=== PATIENT | male | born 1950 | race Caucasian/White ===

== ENCOUNTER 2019-02-24 06:36 | Inpatient (IN) | payer MEDICARE, OTHER ==
[~2019-02-24] VITALS: Ht 182.9 cm; Wt 113.4 kg
[2019-02-24] VITALS (20 sets, daily range): BP systolic 92–134; BP diastolic 49–96
[2019-02-24 07:16] LABS: ABSOLUTE BASOPHILS 0.1 thou/uL (0.0-0.2); ABSOLUTE EOSINOPHILS 0.1 thou/uL (0.0-0.7); ABSOLUTE LYMPHOCYTES 1.8 thou/uL (0.8-5.3); ABSOLUTE MONOCYTES 0.5 thou/uL (0.0-1.2); ABSOLUTE NEUTROPHILS 5.3 thou/uL (1.6-8.1); BASOPHILS 1.2 %; EOSINOPHILS 1.5 %; HEMATOCRIT 44.3 % (42.0-52.0); HEMOGLOBIN 15.3 gm/dL (14.0-18.0); LYMPHOCYTES 22.6 %; MCH 32.6 pg (26.0-34.0); MCHC 34.6 g/dL (28.0-37.0); MCV 94.3 fL (80.0-100.0); MONOCYTES 6.8 %; MPV 9.7 fl. (7.2-11.1); NUCLEATED RBCS 0 /100WBC; PLATELET COUNT* 200 thou/uL (150-400); POLYS 67.9 %; RDW-CV 14.3 % (10.5-14.5); WBC 7.9 thou/uL (4.0-11.0)
[2019-02-24 07:20] LABS: CALCIUM 8.6 mg/dL (8.5-10.1); CREATININE 1.1 mg/dL (0.6-1.3); POTASSIUM 4.1 mmol/L (3.5-5.1)
[2019-02-24] MEDS ORDERED: ROSUVASTATIN CA20 MG PO (07:22)
[2019-02-24] MEDS ORDERED: FENOFIBRATE150 MG PO (07:23)
[2019-02-24] MEDS ORDERED: COZAAR 25 MG TA25 M2 PO (07:23)
[2019-02-24] MEDS ORDERED: ZETIA10 MG PO (07:23)
[2019-02-24] MEDS ORDERED: LO-DOSE ASPIRIN81 M1 PO (07:24)
[2019-02-24] MEDS ORDERED: NEXIUM40 MG PO (07:24)
[2019-02-24 07:26] LABS: INR 1.1; PROTIME 11.2 Seconds (9.20-11.50)
[2019-02-24] MEDS ORDERED: SUPER THERAVIT1 EACH PO (07:27)
[2019-02-24] MEDS ORDERED: FISH OIL 1,001000 M3 PO (07:28)
[2019-02-24 07:30] LABS: ALBUMIN 3.7 g/dL (3.4-5.0); TOTAL BILIRUBIN 0.5 mg/dL (<0.1-1.0); TOTAL PROTEIN 6.9 g/dL (6.4-8.2)
[2019-02-24 08:42] LABS: CHOLESTEROL 107 mg/dL (<200); HDL CHOLESTEROL 24 mg/dL (>40); LDL CHOLESTEROL 63 mg/dL (<100); TC:HDL 4.5 Ratio (Not establshd); TRIGLYCERIDE 102 mg/dL (<150); VLDL 20 mg/dL (<40)
[2019-02-24 08:48] LABS: SERUM ASSESSMENT Clear
--- NOTE | 2019-02-24 17:16 | NUR ---
PT ADMITTED TO ROOM 218 VIA CART FROM ED AT APPROXIMATELY 0855 WITH AFIB RVR. PT ORIENTED TO ROOM AND CALL LIGHT. ADMISSION ASSESSMENT AND HISTORY COMPLETED. REFER TO CHARTING. PT TRACING AFIB ON THE APPEALS OFFICER. CARDIZEM GTT INFUSING AT 5ML/HR AT THIS TIME. HEART RATE IN THE 80'S-90'S. CARDIOLOGY CONSULT IN PLACE. PT HAD HEART CATH TODAY- ACCESS INTO RIGHT GROIN- NO INTERVENTION. CATH SITE C/D/I WITH NO HEMATOMA NOTED. POST CARDIAC CATH ASSESSMENT AND VITALS CHARTED. BEDREST UNTIL 1830. PT INSTRUCTED ON IMMOBILIZATION AND COMMUNICATES UNDERSTANDING OF TEACHING. PT STARTED ON FLECAINIDE AND WILL START ELIQUIS THIS EVENING. HOME MEDICATIONS RECONCILED AND RESTARTED. REFER TO EMAR. PT REPOSITIONS SELF. HOURLY ROUNDING OBSERVED. BED IN LOW POSITION. CALL LIGHT WITHIN REACH. WILL CONTINUE PLAN OF CARE.
[2019-02-25] VITALS: BP 131/79
[2019-02-25 02:12] LABS: GLYCOHEMOGLOBIN (HGB A1C) 5.9 % (4.8-5.6)
[2019-02-25 04:00] VITALS: BP 134/75
--- NOTE | 2019-02-25 05:03 | NUR ---
ASSUMED CARE OF PT AFTER REPORT AT 1930. PT A&OX4. VSS. PHYSICAL ASSESSMENT COMPLETED AND CHARTED. PT ON RA. PT TRACING AFIB ON TELE. PT UPADLIB TO RESTROOM. PT POST CATH SITE TO RIGHT GROIN CLEAN, DRY & INTACT. NO BLEEDING NOTED. MAINTAINED ON CARDIZEM DRIP. PT ABLE TO SLEEP WELL ON BED. CALL LIGHT WITHIN REACH.
[2019-02-25 05:55] LABS: POTASSIUM 4.2 mmol/L (3.5-5.1)
[2019-02-25 06:06] LABS: CALCIUM 8.7 mg/dL (8.5-10.1)
[2019-02-25 07:44] VITALS: BP 142/83
--- NOTE | 2019-02-25 08:22 | NUR ---
ASSUMED CARE OF PT AT 0730. PT RESTING IN BED. PT A&0X4, DENIES ANY PAIN OR SHORTNESS OF BREATH AT THIS TIME. TRACING AFIB ON THE FROZEN FOOD DEPARTMENT MANAGER. RATE IN THE 90'S, CARDIZEM GTT INFUSING AT 5ML/HR. BLOOD PRESSURE STABLE. CARDIOLOGY CONSULT IN PLACE. PT STARTED ON FLECAINIDE AND ELIQUIS. ON RA SAT 95%. PT UP AD TAMARA IN ROOM. PT GOAL FOR TODAY IS TO CONVERT TO SINUS RHYTHM, MAINTAIN HEART RATE BELOW 100 AND AMBULATE IN HALLWAY. AM ASSESSMENT CHARTED. MEDICATIONS PER JUN. PT REPOSITIONS SELF. HOURLY ROUNDING OBSERVED. BED IN LOW POSITION. CALL LIGHT WITHIN REACH. WILL CONTINUE PLAN OF CARE.
--- NOTE | 2019-02-25 11:46 | CARD ---
[address] [address] CARDIAC CATH REPORT Name: GILLIAN CERVANTES Room: [address] IN [facility].#: [id number] Admission: 02/24/19 Attend Phys: Jason Hill MD Discharge: Date of : 52 Report #: [id number] THIS REPORT FOR: //name// APPROVED REPORT Study performed: 02/24/2019 11:14:06 Patient Details Patient Status: In-Patient Room #: 218 The patient is a 69 year-old male Event Personnel Christine Wynn, Yair Domínguez, Alice Brannon RN, Cherie Vance RN RN, Thien Vera Typing Bookkeeper Procedures Performed Art Access - R femoral artery* Left Heart Cath w/LT VGram [id number] LHCLV Indication Chest pain Risk Factors Family History, Hypercholesterolemia, Hypertension Procedure Narrative The patient was brought electively to the Cardiac Catheterization Laboratory and was prepped and draped in a sterile manner. The right femoral was infiltrated with 2% Lidocaine subcutaneous anesthesia. A 6 fr [place] Sheath sheath was inserted into the right femoral artery. Coronary angiography was performed using coronary diagnostic catheters. The right coronary system was accessed and visualized with a Diagnostic catheter. The left coronary system was accessed and visualized with a Diagnostic catheter. The left ventricle was accessed and visualized with a Diagnostic catheter. Left ventricular/Aortic Valve gradient assessed via catheter pullback. Left ventriculogram was performed in OSEI projection. Pre-demployment femoral angiogram was performed . Closure device was deployed with a Fr Mynx 6Fr/7Fr. The patient tolerated the procedure well and there were no complications associated with the procedure. There was no hematoma. Intraoperative Conscious Sedation Sedation start time: 12:03 Case end Time: [place] [address] CARDIAC CATH REPORT Name: GILLIAN CERVANTES Room: [address]#: [id number] Admission: 02/24/19 Attend Phys: Jason Hill MD Discharge: Date of : 52 Report #: [id number] 12:28 Fentanyl 75 mcg Versed 3 mg Fluoro Time: 4.5 minutes Contrast Type and Amount: Visipaque 130 ml Coronary Angiography The patient's coronary anatomy is right dominant. Diagnostic Cath Left Main 0% narrowing LAD 40% proximal LAD stenosis Circumflex Nondominant vessel with 30% mid vessel narrowing Right Coronary Large dominant vessel with 40% mid vessel narrowing Left Ventriculography The left ventricle is normal in size with normal contractility. The left ventricular ejection fraction is estimated to be 65%. Left ventricular wall motion abnormalities are not present. There is no mitral insufficiency. Hemodynamics The aortic pressure is 94/59 mmHg with a mean of 75 mmHg. The left ventricular pressure is 107/4 mmHg with a mean of mmHg. The left ventricular end diastolic pressure is 6 mmHg. There was no gradient across the aortic valve upon pullback. Conclusion #1 modest coronary artery disease characterized by the following: A 40% proximal LAD narrowing B 30% narrowing of the midportion of the nondominant circumflex C large dominant right coronary artery with 40% mid vessel narrowing #2 normal left ventricular systolic function, estimate ejection fraction being 65% #3 normal left-sided hemodynamics study Recommendations Cardiac Risk Reduction Program [facility] [address] [place] [address] CARDIAC CATH REPORT Name: GILLIAN CERVANTES Room: [address] IN [facility]#: [id number] Admission: 02/24/19 Attend Phys: Jason Hill MD Discharge: Date of : 52 Report #: [id number] Diagnostic Cath Approved by: Thien Vera MD Date/Time: 02/25/2019 11:45:35 <ELECTRONICALLY SIGNED> By: Thien Vera MD, [facility] 02/25/19 1146 1146 1146Thien Vera MD, FAC /INF
--- NOTE | 2019-02-25 12:00 | CON ---
[address] [address] CONSULTATION Name: GILLIAN CERVANTES Room: [address] IN .#: [id number] Admission: 02/24/19 Attend Phys: Jason Hill MD Discharge: Date of : 52 Report #: [id number] THIS REPORT FOR: //name// CC: Jason Seaman DATE OF SERVICE: 02/24/2019 CARDIOLOGY CONSULTATION HISTORY OF PRESENT ILLNESS: The patient is a very pleasant 69-year-old male who awakened last evening and then noted a sensation of chest discomfort, which radiated up into the shoulders and into the neck. This persisted for greater than an hour and he sought assistance in the [facility] Emergency Room. He received nitrates. He also received IV Cardizem as he was noted to be in atrial fibrillation with a tachycardic response. In response to both measures, he developed hypotension, but the chest discomfort did diminish and at this point is essentially negligible. He denies any symptoms of this kind in the past. He does have a number of risk factors for coronary artery disease including hypertension, hypercholesterolemia, and a positive family history of premature coronary artery disease in his father. He did smoke remotely, but stopped in 1982. He denies diabetes. PAST MEDICAL HISTORY: Remarkable for hypercholesterol, weight excess, and hypertension. SOCIAL HISTORY: He is . He is a nonsmoker. REVIEW OF SYSTEMS: Remarkable for the following: CARDIOVASCULAR: He noted chest discomfort last night. ALLERGIC AND IMMUNOLOGIC: He notes seasonal allergies. EYES: He wears glasses. Remainder is unremarkable. PHYSICAL EXAMINATION: GENERAL: Demonstrates a middle-aged male in no acute distress at this time. VITAL SIGNS: His blood pressure is 110/70, pulse rate is 105 and irregularly irregular, and respirations are 18 per minute. NECK: Jugular venous pressure is normal. CHEST: Clear. CARDIAC: Reveals normal first and second heart sounds with an irregularly irregular rhythm throughout. No rubs, murmurs [place] [address] CONSULTATION Name: GILLIAN CERVANTES Room: [address] IN [facility]#: [id number] Admission: 02/24/19 Attend Phys: Jason Hill MD Discharge: Date of : 51 Report #: [id number] ABDOMEN: Mildly obese. EXTREMITIES: Without edema with intact femoral, pedal and radial pulses. LABORATORY DATA: Reveals normal renal function parameters. Normal troponin I. EKGs revealed atrial fibrillation with no acute ischemic changes. IMPRESSION: 1. New onset chest discomfort suggestive of ischemic etiology. 2. New onset atrial fibrillation, initially with a tachycardic response, now borderline tachycardic. 3. Hypertension. 4. Hypercholesterolemia. 5. Positive family history of premature coronary artery disease. 6. Modest weight excess. RECOMMENDATIONS: 1. Given the characterization of the pain, I am concerned that this may reflect ischemic discomfort with a development in the context of the tachycardic response atrial fibrillation. 2. Would augment IV Cardizem for rate modulation. 3. Subsequent therapy in terms of reverting the patient to sinus mechanism would be contingent on the presence or absence of associated structural heart disease. Therefore, I would recommend proceeding with cardiac catheterization to define the presence or absence of coronary artery disease associated with the chest discomfort of onset last night. Subsequent therapy for atrial fibrillation would be contingent on those findings as well as the dictated therapy. Critical care time is 40 minutes from 10:25 to 11:05 on 02/24/2019. <ELECTRONICALLY SIGNED> By: Thien Vera MD, FACC 02/25/19 1200 1105 1125Thien Vera MD, FACC /nt
[2019-02-25 14:08] VITALS: BP 131/78
[2019-02-25 16:25] VITALS: BP 117/72
--- NOTE | 2019-02-25 18:38 | NUR ---
NO ACUTE CHANGES THROUGHOUT SHIFT. REFER TO CHARTING. PT CONTINUES TO TRACE AFIB ON THE CEMETERY WORKERS SUPERVISOR-RATE IN THE 80'S-90'S. CARDIZEM GTT CONTINUES TO INFUSE AT 5ML/HR. BLOOD PRESSURE STABLE. CARDIOLOGY HERE TO SEE PT. FLECAINIDE INCREASED TO 100MG BID. EKG AND ECHO IN AM. ON RA SAT UPPER 90'S. DENIES ANY SHORTNESS OF BREATH OR PAIN THIS AFTERNOON. PT UP AD TAMARA IN ROOM. PT AMBULATED IN ROOM- TOLERATED WELL. PT NOT PROGRESSING TOWARDS GOALS. POSSIBLE CARDIOVERSION TOMORROW IF PT DOESNT CONVERT. MEDICATIONS PER JUN. PT REPOSITIONS SELF. HOURLY ROUNDING OBSERVED. BED IN LOW POSITION. CALL LIGHT WITHIN REACH. WILL CONTINUE PLAN OF CARE.
[2019-02-25 20:00] VITALS: BP 121/79
[2019-02-26] VITALS (12 sets, daily range): BP systolic 110–130; BP diastolic 65–87
--- NOTE | 2019-02-26 07:25 | NUR ---
DUSTIN PATIENT CARE AT 1900. ASSESSMENT COMPLETED CHARTED. VSS. PATIENT IS A-FIB ON THE MONITOR. HOURLY ROUNDING IN PLACE FOR PATIENT SAFETY. CLWR.
[2019-02-26] MEDS ORDERED: FLECAINIDE ACET50 M1 PO (07:49)
[2019-02-26] MEDS ORDERED: ELIQUIS5 MG PO (07:49)
--- NOTE | 2019-02-26 11:23 | EKG ---
[place] [address] ELECTROCARDIOGRAM REPORT Name: GILLIAN CERVANTES Room: [address] ADM IN [facility]#: [id number] Admission: 02/24/19 Attend Phys: Jason Hill MD Discharge: Date of : 51 Report #: [id number] THIS REPORT FOR: //name// [facility] ED Test Date: 2019-02-24 Test Time: 06:42:05 Pat Name: GILLIAN CERVANTES Department: Room: [facility] Gender: M Clean Up Person: NANCY : 1950 Requested By: Jw Gallo Order Number: [id number] MD: Rowdy Cali Measurements Intervals [place] Rate: 88 P: PA: QRS: 42 QRSD: 93 T: 32 QT: 388 QTc: 470 Interpretive Statements Atrial fibrillation Low voltage, extremity leads No previous ECG available for comparison Electronically Signed On 02-26-2019 11:23:50 PET ADOPTION COUNSELOR by Rowdy Cali [email or web address] <ELECTRONICALLY SIGNED> By: Rowdy Cali MD, [facility] 02/26/19 1123 0642 0642 Rowdy Cali MD, FACC /EPI
--- NOTE | 2019-02-26 11:35 | EKG ---
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
--- NOTE | 2019-02-26 12:33 | NUR ---
Pt out of room at cardio version. Anticipate dc tomorrow. CM to attempt to assess later
--- NOTE | 2019-02-26 12:44 | 2DMMODE ---
[place] [address] 2 D/M-MODE ECHOCARDIOGRAM Name: GILLIAN CERVANTES Room: [address] IN [facility]#: [id number] Admission: 02/24/19 Attend Phys: Jason Hill, Discharge: Date of : 52 Date of Service: 02/26/19 1244 Report #: [id number] THIS REPORT FOR: //name// APPROVED REPORT Study performed: 02/26/2019 10:27:16 EXAM: Comprehensive 2D, Doppler, and color-flow Echocardiogram Patient Location: In-Patient Room #: 218 BSA: 2.41 HR: 77 bpm BP: 110/77 mmHg Other Information Study Quality: Excellent Indications Atrial Fibrillation 2D Dimensions IVSd: 12.08 (7-11mm) LVOT Diam: 21.24 (18-24mm) LVDd: 52.80 mm PWd: 9.60 (7-11mm) Ascending Ao: 31.96 (22-36mm) LVDs: 28.94 (25-40mm) Aortic Root: 33.49 mm Aortic Valve AoV Peak Farrukh.: 1.53 m/s AO Peak Gr.: 9.37 mmHg LVOT Max P.23 mmHg AO Mean Gr.: 5.41 mmHg LVOT Mean P.49 mmHg LVOT Max V: 0.90 m/s AO V2 VTI: 28.24 cm LVOT Mean V: 0.55 m/s SOFI (VTI): 2.15 cm2 LVOT V1 VTI: 17.16 cm Mitral Valve MV Decel. Time: 153.32 ms MV E Max Farrukh.: 1.03 m/s MV PHT: 44.46 ms MVA (PHT): 4.95 cm2 TDI E/Lateral E': 8.58 E/Medial E': 11.44 Medial E' Farrukh.: 0.09 m/[place] [address] 2 D/M-MODE ECHOCARDIOGRAM Name: GILLIAN CERVANTES Room: [address] IN [facility]#: [id number] Admission: 02/24/19 Attend Phys: Jason Hill, Discharge: Date of : 52 Date of Service: 02/26/19 1244 Report #: [id number] Lateral E' Farrukh.: 0.12 m/s Pulmonary Valve PV Peak Farrukh.: 0.78 m/s PV Peak Gr.: 2.45 mmHg Left Ventricle The left ventricle is normal size. There is normal LV segmental wall motion. There is normal left ventricular wall thickness. Left ventricular systolic function is normal. The left ventricular ejection fraction is within the normal range. LVEF is 55-60%. This study is not technically sufficient to allow evaluation of the LV diastolic function due to atrial fibrillation. Right Ventricle The right ventricle is normal size. The right ventricular systolic function is normal. Atria Left atrium is dilated. The right atrium size is normal. Aortic Valve Aortic valve is mildly calcified. No aortic regurgitation is present. There is no aortic valvular stenosis. Mitral Valve The mitral valve is normal in structure. Mild mitral regurgitation. No evidence of mitral valve stenosis. Tricuspid Valve The tricuspid valve is normal in structure. There is no tricuspid valve regurgitation noted. Pulmonic Valve Pulmonic valve is not well visualized. There is no pulmonic valvular regurgitation. Great Vessels The aortic root is normal in size. IVC is normal in size and collapses >50% with inspiration. Pericardium There is no pericardial effusion. <Conclusion> LVEF is 55-60%. [place] [address] 2 D/M-MODE ECHOCARDIOGRAM Name: GILLIAN CERVANTES Room: [address]#: [id number] Admission: 02/24/19 Attend Phys: Jason Hill, Discharge: Date of : 52 Date of Service: 02/26/19 1244 Report #: [id number] Aortic valve is mildly calcified. Left atrium is dilated. <ELECTRONICALLY SIGNED> By: Rowdy Cali MD, [facility] 02/26/19 1244 D: 11/4 1244 Rowdy Cali MD, FACC /INF
--- NOTE | 2019-02-26 13:15 | EKG ---
[place] [address] ELECTROCARDIOGRAM REPORT Name: GILLIAN CERVANTES Room: [address] ADM IN [facility].#: [id number] Admission: 02/24/19 Attend Phys: Jason Hill MD Discharge: Date of : 52 Report #: [id number] THIS REPORT FOR: //name// [facility] Test Date: 2019-02-26 Test Time: 05:07:05 Pat Name: GILLIAN GALICIACRISTINO Department: Room: [address] Gender: M Alarm Signal Operator: INDERJIT : 1950 Requested By: Jason Hill Order Number: [id number] Fozia MD: Rowdy Cali Measurements Intervals [place] Rate: 93 P: [place]: QRS: 56 QRSD: 104 T: 33 QT: 371 QTc: 462 Interpretive Statements Atrial fibrillation Borderline low voltage, extremity leads Compared to ECG 02/25/2019 04:42:32 No significant changes Electronically Signed On 02-26-2019 13:15:31 SENIOR C WEB DEVELOPER by Rowdy Cali [email or web address] <ELECTRONICALLY SIGNED> By: Rowdy Cail MD, [facility] 02/26/19 1315 0507 0507 Rowdy Cali MD, FACC /EPI
--- NOTE | 2019-02-26 13:51 | NUR ---
ASSUMED CARE OF PT AT 0730. PT LYING IN BED. PT NPO FOR CARDIOLOGY- PT HAD CARDIOVERSION TODAY- UNSUCESSFUL WITH SHOCKS X 2. CARDIZEM GTT DISCONTINUED AND PT STARTED ON PO CARDIZEM. FLECAINIDE DISCONTINUED. ON RA SAT 98%. PT DENIES ANY SHORTNESS OF BREATH OR PAIN. AT BEDSIDE AND UPDATED ON CURRENT PLAN OF CARE. CONTINUES TO TRACE AFIB ON THE AUDIENCE DEVELOPMENT MANAGER-RATE CONTROLLED IN THE 80'S-90'S. UP AD TAMARA IN ROOM. PT GOAL FOR TODAY IS CONVERT TO SINUS RHYTHM AND INCREASE ACTIVITY. PT TO HAVE ECHO TODAY. AM ASSESSMENT CHARTED. MEDICATIONS PER JUN. PT REPOSITIONS SELF. HOURLY ROUNDING OBSERVED. BED IN LOW POSITION. CALL LIGHT WITHIN REACH. WILL CONTINUE PLAN OF CARE.
--- NOTE | 2019-02-26 18:34 | NUR ---
NO ACUTE CHANGES THROUGHOUT SHIFT. REFER TO CHARTING. PT PROGRESSING TOWARDS GOALS. AT APPROXIMATELY 1503- PT NOTED TO BE IN SINUS RHYTHM. EKG OBTAINED SHOWING SINUS RHYTHM. PT STARTED ON PO CARDIZEM THIS AM. PT AT BEDSIDE THIS AFTERNOON. UPDATED ON CURRENT PLAN OF CARE. DENIES ANY PAIN OR SHORTNESS OF BREATH THROUGHOUT AFTERNOON. ON RA SAT UPPER 90'S. UP AD TAMARA IN ROOM. PROBABLE DISCHARGE HOME TOMORROW 02/27. MEDICATIONS PER JUN. PT REPOSITIONS SELF. HOURLY ROUNDING OBSERVED. BED IN LOW POSITION. CALL LIGHT WITHIN REACH. WILL CONTINUE PLAN OF CARE.
[2019-02-27] VITALS: BP 113/64
[2019-02-27 04:00] VITALS: BP 123/75
--- NOTE | 2019-02-27 07:33 | NUR ---
ASSUMED PATIENT CARE AT 1900. ASSESSMENT COMPLETED CHARTED. VSS. PATIENT WAS SR/1D AT BEGINNING OF SHIFT BUT THEN WENT IN AND OUT OF A-FIB/A-FLUTTER THE SHIFT PROGRESSED. PATIENT IS ASYMPTOMATIC. HOURLY ROUNDING IN PLACE FOR PATIENT SAFETY. CLWR.
[2019-02-27 08:00] VITALS: BP 122/70
--- NOTE | 2019-02-27 09:50 | EKG ---
[place] [address] ELECTROCARDIOGRAM REPORT Name: GILLIAN CERVANTES Room: [address] ADM IN [facility].#: [id number] Admission: 02/24/19 Attend Phys: Jason Hill MD Discharge: Date of : 52 Report #: [id number] THIS REPORT FOR: //name// [facility] Test Date: 2019-02-26 Test Time: 16:18:26 Pat Name: GILLIAN CERVANTES Department: Room: [address] Gender: M Head Chef: : 1950 Requested By: Thien Vera Order Number: [id number] Fozia MD: Rowdy Cali Measurements Intervals [place] Rate: 90 P: 92 NE: 264 QRS: 69 QRSD: 114 T: 47 QT: 377 QTc: 462 Interpretive Statements atrial flutter Borderline intraventricular conduction delay Compared to ECG 02/26/2019 05:07:05 Atrial fibrillation no longer present Electronically Signed On 02-27-2019 9:49:59 MAINFRAME PROGRAMMER by Rowdy Cali [email or web address] <ELECTRONICALLY SIGNED> By: Rowdy Cali MD, [facility] 02/27/19 0949 1618 161 Rowdy Cali MD, FACC /EPI
[2019-02-27] MEDS ORDERED: CARDIZEM CD 30300 M1 PO (10:07)
--- NOTE | 2019-02-27 10:26 | EKG ---
[place] [address] ELECTROCARDIOGRAM REPORT Name: GILLIAN CERVANTES Room: [address] ADM [place] R.#: [id number] Admission: 02/24/19 Attend Phys: Jason Hill MD Discharge: Date of : 52 Report #: [id number] THIS REPORT FOR: //name// [facility] Test Date: 2019-02-27 Test Time: 09:31:10 Pat Name: GILLIAN CERVANTES Department: Room: [address] Gender: M Construction Administrative Assistant: RT : 1950 Requested By: Rowdy Cali Order Number: [id number] MD: Rowdy Cali Measurements Intervals [place] Rate: 68 P: [place]: QRS: 51 QRSD: 100 T: 35 QT: 393 QTc: 418 Interpretive Statements Atrial flutter Borderline ST depression, inferior leads Baseline wander in lead(s) V1 Compared to ECG 02/26/2019 05:07:05 no change Electronically Signed On 02-27-2019 10:26:27 SALES AND CUSTOMER RELATIONS REP by Rowdy Cali [email or web address] <ELECTRONICALLY SIGNED> By: Rowdy Cali MD, [facility] 02/27/19 1026 0 0 Rowdy Cali MD, [facility] /EPI
[2019-02-27] MEDS ORDERED: DILTIAZEM 24HR180 M1 PO (11:11)
--- NOTE | 2019-02-27 11:29 | NUR ---
MET WITH PT AND TO DISCUSS HOME SITUATION/DC PLANNING. PT LIVES WITH SPOUSE, IS INDEPENDENT AND ACTIVE. USES NO EQUIPMENT. PT DENIES ANY DC NEEDS, HAS F/U WITH CARDIOLOGY
[2019-02-27 11:43] VITALS: BP 122/70
[2019-02-27 11:44] VITALS: BP 121/76
[2019-02-27 12:50] VITALS: BP 121/76
--- NOTE | 2019-02-27 12:54 | NUR ---
ASSUMED PT AT 0700, PT A&O X4, VSS, RA, SALES CENTER ASSOCIATE TRACING CONTROLLED A FLUTTER, PT A-SYMPTOMATIC, FULL ASSESSMENT CHARTED. PT DISCHARGED HOME AT APPROX 1250, EDUCATED ON ALL DISCHARGE INSTRUCTIONS INCLUDING MEDICATIONS AND FOLLOW UP APPOINTMENTS. HOURLY ROUNDING COMPLETED, IV AND SALES CENTER ASSOCIATE REMOVED.
--- NOTE | 2019-02-28 12:24 | NUR ---
Spoke with the patient by phone, he reports he has not felt his heart racing, he has all his medications, and his right groin cath site is bruised but no signs of infection. He did not have any questions or concerns.
--- NOTE | 2019-02-28 14:21 | CARD ---
[address] [address] CARDIAC CATH REPORT Name: GILLIAN CERVANTES Room: [address] IN .R.#: [id number] Admission: 02/24/19 Attend Phys: Jason Hill MD Discharge: 02/27/19 Date of : 52 Report #: [id number] THIS REPORT FOR: //name// CC: Jason Seaman DO DATE OF SERVICE: 02/26/2019 TITLE OF PROCEDURE: Direct current cardioversion of atrial fibrillation. INDICATIONS: The patient presented with atrial fibrillation. The patient was started on Eliquis prior to the procedure. He was started on intravenous Cardizem to slow the ventricular response rate and had been started on flecainide. DESCRIPTION OF PROCEDURE: Indications, alternatives and risks of the procedure were discussed with the patient and he agreed to proceed. Hands free patches were applied in the anterior and posterior location. The patient was given a total of 7 mg of Versed and 75 mcg of fentanyl intravenously in divided doses. The patient was then cardioverted using 200 joules of direct current energy. The patient had a brief episode of sinus rhythm, but then converted back to atrial fibrillation. The patient was then converted with 300 joules of direct current energy. The patient remained in atrial fibrillation. At this time, it was decided to aim for rate control rather than repeat efforts at cardioversion. The patient tolerated the procedure well. IMPRESSION: Unsuccessful cardioversion of atrial fibrillation to normal sinus rhythm. <ELECTRONICALLY SIGNED> By: Rowdy Cali MD, FACC 02/28/19 1421 1324 [id number] Dexter Cali MD, FACC /nt
== END 2019-02-27 12:51 | disposition home or self-care (01) | DRG 287 ==
LOC: M.ERS 06:36 → M.2W 07:41 → M.TBA-ER 07:41 → M.2W 09:03
PROVIDERS: Emergency Medicine; ADMIT Internal Medicine
PROC: B211YZZ Fluoroscopy of Multiple Coronary Arteries using Other Contrast (ICD-10-PCS; principal; 2019-02-25)
PROC: 4A023N7 Measurement of Cardiac Sampling and Pressure, Left Heart, Percutaneous Approach (ICD-10-PCS; principal; 2019-02-25)
PROC: B215YZZ Fluoroscopy of Left Heart using Other Contrast (ICD-10-PCS; principal; 2019-02-25)
PROC: 5A2204Z Restoration of Cardiac Rhythm, Single (ICD-10-PCS; 2019-02-26)
DX: I25.10 Atherosclerotic heart disease of native coronary artery without angina pectoris (principal); I48.20 Chronic atrial fibrillation, unspecified; I10 Essential (primary) hypertension; E78.00 Pure hypercholesterolemia, unspecified; K21.9 Gastro-esophageal reflux disease without esophagitis; E66.9 Obesity, unspecified; R73.9 Hyperglycemia, unspecified; R73.03 Prediabetes; Z79.82 Long term (current) use of aspirin; Z82.49 Family history of ischemic heart disease and other diseases of the circulatory system; Z79.899 Other long term (current) drug therapy; Z68.33 Body mass index [BMI] 33.0-33.9, adult